=== PATIENT | male | born 1975 | race American Indian/Alaskan Native ===

== ENCOUNTER 2023-07-15 06:40 | Inpatient (IN) | payer OTHER ==
[~2023-07-15] VITALS: Ht 170.2 cm; Wt 86.6 kg
[2023-07-15 07:42] LABS: Urine Bacteria NONE SEEN /hpf (None Seen); Urine Blood 2+ /uL (Negative); Urine Clarity Clear (Clear); Urine Color Yellow (Yellow); Urine Protein, UAD 2+ (Negative); Urine Urobilinogen Normal (Negative); Urine WBC 11 /hpf (0 - 3)
[2023-07-15] MEDS ORDERED: ACETAMINOPHEN 500 MG TAB PO ONE (08:30)
[2023-07-15 08:35] LABS: Basophils # (auto) 0 10 ^3/uL (0-0.2); Basophils % (auto) 0.3 % (0.0-2.0); Eosinophils # (auto) 0 10 ^3/uL (0-0.8); Eosinophils % (auto) 0.1 % (0.0-7.0); Hematocrit 37.4 % (41.0-53.0); Hemoglobin 12.4 g/dL (13.5-17.5); Lymphocytes # (auto) 0.6 10 ^3/uL (0.4-5.4); Lymphocytes % (auto) 4.1 % (10.0-50.0); Mean Corpuscular Hemoglobin 28.2 pg (28.0-32.0); Mean Corpuscular Hgb Conc. 33.1 g/dL (32.0-36.0); Mean Corpuscular Volume 85.3 fL (80.0-100.0); Monocytes # (auto) 0.5 10 ^3/uL (0-1.3); Monocytes % (auto) 3.4 % (0.0-12.0); Neutrophils # (auto) 14.6 10 ^3/uL (1.6-8.6); Neutrophils % (auto) 92.1 % (37.0-80.0); Nucleated Red Blood Cells % 0.1 %; Red Blood Cells 4.38 10^6/uL (4.5-5.90); Red Cell Distribution Width 13.5 % (11.8-14.3); White Blood Cell 15.9 10^3/uL (4.4-10.8)
[2023-07-15] MEDS ORDERED: SODIUM CHLORIDE 0.9% 2,450 ML IV ONE (08:45)
[2023-07-15] MEDS ORDERED: PIPERACILLIN-TAZO 4.5GM 100 ML IV ONE (08:45)
[2023-07-15 08:51] LABS: Alanine Aminotransferase 50 U/L (7-40); Albumin 3.9 g/dL (3.2-4.8); Alkaline Phosphatase 168 U/L (46-116); Anion Gap 8 (5-15); Aspartate Aminotransferase 56 U/L (13-40); BUN/Creatinine Ratio 8.1 (10.0-20.0); Blood Urea Nitrogen 13 mg/dL (9-23); Calcium 8.7 mg/dL (8.5-10.1); Carbon Dioxide 23 mmol/L (20-30); Chloride 98 mmol/L (98-107); Potassium 4.1 mmol/L (3.5-5.1); Sodium 129 mmol/L (136-145)
[2023-07-15 08:52] LABS: Bilirubin, Total 1.2 mg/dL (0.2-1.0); Total Protein 6.7 g/dL (5.7-8.2)
[2023-07-15 08:57] LABS: Glucose 431 mg/dL (74-106)
[2023-07-15 09:04] LABS: Lipase 33 U/L (12-53); Magnesium 1.9 mg/dL (1.6-2.6)
[2023-07-15 09:24] LABS: INR 0.96 (0.9-1.15); Prothrombin Time 10.1 sec (9.3-11.8)
[2023-07-15] MEDS ORDERED: VANCOMYCIN 1GM/200ML 250 ML IV ONE (09:45)
[2023-07-15] MEDS ORDERED: MORPHINE SULFATE INJ 2 MG/ml SYRG IV PRN (10:00)
[2023-07-15] MEDS ORDERED: DOCUSATE SOD 100 MG CAP PO PRN (10:00)
[2023-07-15] MEDS ORDERED: SODIUM CHLORIDE 0.9% 2,000 ML IV ONE (10:00)
[2023-07-15] MEDS ORDERED: ONDANSETRON HCL 4 MG/2 ML VIAL IV PRN (10:00)
[2023-07-15] MEDS ORDERED: InsuLIN REG 1unit/0.01ml Soln (100units/ml) IV ONE (10:15)
[2023-07-15] MEDS: SODIUM CHLORIDE 0.9% 1,000 ML IV SCH ×2 (11:13→17:08)
[2023-07-15 11:48] LABS: COVID19 ANTIGEN SOFIA FIA NEGATIVE (NEGATIVE); Rapid Influenza A Negative (Negative); Rapid Influenza B Negative (Negative)
[2023-07-15 13:16] LABS: Creatinine, Urine 83.62 mg/dL (30.0-125.0)
[2023-07-15] MEDS: PIPERACILLIN-TAZOB 3.375GM 100 ML IV SCH ×2 (17:08→22:15)
[2023-07-15 17:16] VITALS: O2SAT 98
[2023-07-15] MEDS ORDERED: LOSARTAN POTASSIUM 25 MG TAB PO ONE (18:15)
[2023-07-15 19:45] VITALS: PULSE 115; RESP 15; O2SAT 98
[2023-07-15 23:00] VITALS: O2SAT 98
[2023-07-16] MEDS: SODIUM CHLORIDE 0.9% 1,000 ML IV SCH ×2 (02:00→22:31)
[2023-07-16] MEDS: PIPERACILLIN-TAZOB 3.375GM 100 ML IV SCH (03:58)
[2023-07-16] MEDS ORDERED: VANCOMYCIN PER PHARMACY 0 MG IV SCH ×2 (05:15→08:30)
[2023-07-16 05:26] LABS: Basophils # (auto) 0 10 ^3/uL (0-0.2); Basophils % (auto) 0.3 % (0.0-2.0); Eosinophils # (auto) 0 10 ^3/uL (0-0.8); Eosinophils % (auto) 0.3 % (0.0-7.0); Hematocrit 34.5 % (41.0-53.0); Hemoglobin 11.6 g/dL (13.5-17.5); Lymphocytes # (auto) 0.8 10 ^3/uL (0.4-5.4); Lymphocytes % (auto) 10.7 % (10.0-50.0); Mean Corpuscular Hgb Conc. 33.7 g/dL (32.0-36.0); Mean Corpuscular Volume 85.9 fL (80.0-100.0); Monocytes # (auto) 0.6 10 ^3/uL (0-1.3); Monocytes % (auto) 8.7 % (0.0-12.0); Nucleated Red Blood Cells % 0.1 %; Red Blood Cells 4.01 10^6/uL (4.5-5.90); Red Cell Distribution Width 13.6 % (11.8-14.3); White Blood Cell 7.5 10^3/uL (4.4-10.8)
[2023-07-16 05:49] LABS: Alanine Aminotransferase 56 U/L (7-40); Albumin 3.5 g/dL (3.2-4.8); Alkaline Phosphatase 197 U/L (46-116); Anion Gap 9 (5-15); Aspartate Aminotransferase 55 U/L (13-40); BUN/Creatinine Ratio 9.1 (10.0-20.0); Bilirubin, Total 1.4 mg/dL (0.2-1.0); Blood Urea Nitrogen 12 mg/dL (9-23); Calcium 8.2 mg/dL (8.5-10.1); Carbon Dioxide 23 mmol/L (20-30); Chloride 103 mmol/L (98-107)
[2023-07-16 05:57] LABS: Glucose 291 mg/dL (74-106); Sodium 135 mmol/L (136-145)
[2023-07-16] MEDS ORDERED: VANCOMYCIN 1GM/200ML 250 ML IV ONE (06:00)
[2023-07-16] MEDS ORDERED: DEXTROSE (50%) 50ML SYRG IV PRN (08:30)
[2023-07-16 09:00] VITALS: BP 157/87; PULSE 101; RESP 20; TEMP 98.5; O2SAT 97
[2023-07-16 10:13] LABS: LDL Cholesterol 125 mg/dL (< 100); Triglycerides 154 mg/dL (< 150)
[2023-07-16 10:15] LABS: Cholesterol 187 mg/dL (< 200); HDL Cholesterol 41 mg/dL (40-59)
[2023-07-16] MEDS: LOSARTAN POTASSIUM 25 MG TAB PO SCH (10:26)
[2023-07-16] MEDS: cefTRIAXone 1GM/50ML D5W 50 ML IV SCH (10:26)
[2023-07-16] MEDS: INSULIN LANTUS (GLARGINE) 1 /0.01ml (100units/ml) SC SCH (10:27)
[2023-07-16 13:00] VITALS: BP 167/92; PULSE 103; RESP 20; TEMP 98.7; O2SAT 96
[2023-07-16 13:01] VITALS: PULSE 100; RESP 16; O2SAT 95
[2023-07-16] MEDS: ACCU-CHEK COMFORT CURVE STRIP VI SCH ×3 (13:09→20:01)
[2023-07-16] MEDS: InsuLIN REG 1unit/0.01ml Soln (100units/ml) SC SCH ×3 (13:09→20:23)
[2023-07-16 16:39] VITALS: BP 155/91; PULSE 101; RESP 20; TEMP 98.7; O2SAT 98
[2023-07-16] MEDS: TAMSULOSIN HYDROCHLORIDE 0.4 MG CAP PO SCH (18:32)
[2023-07-16 22:00] VITALS: BP 143/86; PULSE 100; RESP 18; TEMP 98.7; O2SAT 98
[2023-07-16] MEDS ORDERED: VANCOMYCIN 1GM/200ML 250 ML IV SCH (22:00)
[2023-07-16] MEDS: VANCOMYCIN 750mg/250ml 250 ML IV SCH (22:06)
[2023-07-17] MEDS: ACCU-CHEK COMFORT CURVE STRIP VI SCH ×7 (00:07→23:46)
[2023-07-17] MEDS: InsuLIN REG 1unit/0.01ml Soln (100units/ml) SC SCH ×7 (00:09→23:50)
[2023-07-17 05:00] VITALS: BP 153/87; PULSE 95; RESP 18; TEMP 98.4; O2SAT 97
[2023-07-17] MEDS: INSULIN LANTUS (GLARGINE) 1 /0.01ml (100units/ml) SC SCH (06:40)
[2023-07-17 07:57] LABS: Alanine Aminotransferase 50 U/L (7-40); Albumin 3.3 g/dL (3.2-4.8); Alkaline Phosphatase 258 U/L (46-116); Anion Gap 6 (5-15); Aspartate Aminotransferase 34 U/L (13-40); BUN/Creatinine Ratio 10.3 (10.0-20.0); Blood Urea Nitrogen 11 mg/dL (9-23); Calcium 8.4 mg/dL (8.7-10.4); Carbon Dioxide 26 mmol/L (20-30); Chloride 106 mmol/L (98-107); Magnesium 2.1 mg/dL (1.6-2.6); Potassium 3.8 mmol/L (3.5-5.1); Sodium 138 mmol/L (136-145)
[2023-07-17 07:58] LABS: Bilirubin, Total 0.6 mg/dL (0.2-1.0); Total Protein 5.8 g/dL (5.7-8.2)
[2023-07-17 08:01] LABS: Glucose 182 mg/dL (74-106)
[2023-07-17] MEDS ORDERED: ATORVASTATIN 20 MG TAB PO ONE (08:45)
[2023-07-17] MEDS ORDERED: ERGOCALCIFEROL 50,000 UNIT(1.25MG) CAP PO SCH (08:45)
[2023-07-17 09:00] VITALS: BP 153/88; PULSE 94; RESP 20; TEMP 98.6; O2SAT 97
[2023-07-17] MEDS: LOSARTAN POTASSIUM 25 MG TAB PO SCH (09:03)
[2023-07-17] MEDS: cefTRIAXone 1GM/50ML D5W 50 ML IV SCH (09:03)
[2023-07-17 09:19] LABS: Hepatitis B Surface Antigen Negative (Negative)
[2023-07-17 09:39] LABS: Hepatitis A Ab IgM Negative
[2023-07-17 09:40] LABS: Hepatitis B Core IgM Negative
[2023-07-17 09:41] LABS: Hepatitis C Antibody Negative (Negative)
[2023-07-17] MEDS: SODIUM CHLORIDE 0.9% 1,000 ML IV SCH (11:33)
[2023-07-17 13:00] VITALS: BP 165/98; PULSE 97; RESP 20; TEMP 98.2; O2SAT 95
[2023-07-17] MEDS: VANCOMYCIN 750mg/250ml 250 ML IV SCH (13:59)
[2023-07-17] MEDS ORDERED: hydrALAZINE HCL 25 MG TAB ONE (14:27)
[2023-07-17] MEDS: hydrALAZINE HCL 25 MG TAB PO PRN (14:28)
[2023-07-17 16:54] VITALS: BP 160/87; PULSE 102; RESP 18; TEMP 98.2; O2SAT 98
[2023-07-17] MEDS: TAMSULOSIN HYDROCHLORIDE 0.4 MG CAP PO SCH (17:31)
[2023-07-17] MEDS: metFORMIN HYDROCHLORIDE 500 MG TAB PO SCH (17:31)
[2023-07-17] MEDS ORDERED: hydrALAZINE HCL 25 MG TAB PO SCH (18:00)
[2023-07-17 22:00] VITALS: BP 147/92; PULSE 96; RESP 16; TEMP 97.9; O2SAT 98
[2023-07-17] MEDS: ATORVASTATIN 20 MG TAB PO SCH (22:37)
[2023-07-18] MEDS: SODIUM CHLORIDE 0.9% 1,000 ML IV SCH ×2 (00:25→14:17)
[2023-07-18] MEDS: ACCU-CHEK COMFORT CURVE STRIP VI SCH ×6 (04:18→23:37)
[2023-07-18] MEDS: InsuLIN REG 1unit/0.01ml Soln (100units/ml) SC SCH ×6 (04:23→23:43)
[2023-07-18 05:00] VITALS: BP 154/92; PULSE 98; RESP 20; TEMP 98.6; O2SAT 99
[2023-07-18] MEDS ORDERED: ACETAMINOPHEN 325 MG TAB PO ONE ×2 (05:55→06:00)
[2023-07-18] MEDS: hydrALAZINE HCL 25 MG TAB PO PRN ×2 (06:11→23:37)
[2023-07-18] MEDS: EMPAGLIFLOZIN 10 MG TAB PO SCH (06:12)
[2023-07-18 06:33] LABS: Basophils # (auto) 0 10 ^3/uL (0-0.2); Basophils % (auto) 0.5 % (0.0-2.0); Eosinophils # (auto) 0.2 10 ^3/uL (0-0.8); Eosinophils % (auto) 4.6 % (0.0-7.0); Hematocrit 34.3 % (41.0-53.0); Hemoglobin 11.4 g/dL (13.5-17.5); Lymphocytes # (auto) 1.3 10 ^3/uL (0.4-5.4); Lymphocytes % (auto) 26.5 % (10.0-50.0); Mean Corpuscular Hemoglobin 28.2 pg (28.0-32.0); Mean Corpuscular Hgb Conc. 33.2 g/dL (32.0-36.0); Mean Corpuscular Volume 84.9 fL (80.0-100.0); Monocytes # (auto) 0.4 10 ^3/uL (0-1.3); Monocytes % (auto) 8.6 % (0.0-12.0); Neutrophils % (auto) 59.8 % (37.0-80.0); Red Blood Cells 4.04 10^6/uL (4.5-5.90); Red Cell Distribution Width 13.8 % (11.8-14.3); White Blood Cell 5.1 10^3/uL (4.4-10.8)
[2023-07-18 06:42] LABS: Anion Gap 6 (5-15); Carbon Dioxide 27 mmol/L (20-30); Chloride 106 mmol/L (98-107); Potassium 3.8 mmol/L (3.5-5.1); Sodium 139 mmol/L (136-145)
[2023-07-18 06:43] LABS: Calcium 8.6 mg/dL (8.7-10.4)
[2023-07-18 06:48] LABS: BUN/Creatinine Ratio 10.7 (10.0-20.0); Blood Urea Nitrogen 11 mg/dL (9-23); Glucose 180 mg/dL (74-106)
[2023-07-18] MEDS: VANCOMYCIN 750mg/250ml 250 ML IV SCH (08:35)
[2023-07-18] MEDS: metFORMIN HYDROCHLORIDE 500 MG TAB PO SCH ×2 (08:35→17:33)
[2023-07-18] MEDS: LOSARTAN POTASSIUM 25 MG TAB PO SCH (08:45)
[2023-07-18 09:00] VITALS: BP 155/90; PULSE 94; RESP 18; TEMP 98.7; O2SAT 93
[2023-07-18 12:45] VITALS: BP_SYST 119; BP_SYST 159; BP_DIAS 74; BP_DIAS 95; PULSE 97; PULSE 99; RESP 16; RESP 18; TEMP 98.1; TEMP 98.2; O2SAT 97
[2023-07-18] MEDS: cefTRIAXone 1GM/50ML D5W 50 ML IV SCH (14:00)
[2023-07-18] MEDS ORDERED: VANCOMYCIN 1GM/200ML 250 ML IV ONE (16:10)
[2023-07-18] MEDS: VANCOMYCIN 1GM/200ML 250 ML IV SCH (16:14)
[2023-07-18 17:00] VITALS: BP 158/91; PULSE 98; RESP 20; TEMP 98.3; O2SAT 100
[2023-07-18] MEDS: TAMSULOSIN HYDROCHLORIDE 0.4 MG CAP PO SCH (17:33)
[2023-07-18 23:19] VITALS: BP 163/88; PULSE 103; RESP 18; TEMP 97.9; O2SAT 99
[2023-07-18] MEDS: ATORVASTATIN 20 MG TAB PO SCH (23:37)
[2023-07-19] MEDS ORDERED: VANCOMYCIN 1GM/200ML 250 ML IV ONE ×2 (01:55→11:31)
[2023-07-19] MEDS: VANCOMYCIN 1GM/200ML 250 ML IV SCH ×3 (01:56→22:00)
[2023-07-19] MEDS: SODIUM CHLORIDE 0.9% 1,000 ML IV SCH ×2 (03:05→16:25)
[2023-07-19] MEDS: InsuLIN REG 1unit/0.01ml Soln (100units/ml) SC SCH ×5 (04:00→20:00)
[2023-07-19] MEDS: ACCU-CHEK COMFORT CURVE STRIP VI SCH ×5 (04:08→20:00)
[2023-07-19 05:44] VITALS: BP 146/84; PULSE 104; RESP 18; TEMP 98.1; O2SAT 96
[2023-07-19] MEDS: EMPAGLIFLOZIN 10 MG TAB PO SCH (06:27)
[2023-07-19] MEDS: metFORMIN HYDROCHLORIDE 500 MG TAB PO SCH ×2 (08:01→18:24)
[2023-07-19] MEDS: LOSARTAN POTASSIUM 25 MG TAB PO SCH (08:03)
[2023-07-19 08:30] VITALS: BP 136/85; PULSE 98; RESP 20; TEMP 98.2
[2023-07-19 09:00] VITALS: BP 136/85; PULSE 98; RESP 20; TEMP 98.2; O2SAT 95
[2023-07-19] MEDS: cefTRIAXone 1GM/50ML D5W 50 ML IV SCH (09:00)
[2023-07-19 13:00] VITALS: BP 135/83; PULSE 103; RESP 20; TEMP 98.3; O2SAT 96
[2023-07-19 17:00] VITALS: BP 136/83; PULSE 99; RESP 20; TEMP 98.1; O2SAT 98
[2023-07-19] MEDS: TAMSULOSIN HYDROCHLORIDE 0.4 MG CAP PO SCH (18:24)
[2023-07-19 22:00] VITALS: BP 162/94; PULSE 100; RESP 18; TEMP 98.1; O2SAT 95
[2023-07-19] MEDS: ATORVASTATIN 20 MG TAB PO SCH (23:33)
[2023-07-20] VITALS (8 sets, daily range): BP systolic 112–149; BP diastolic 70–82; PULSE 54–105; RESP 16–20; TEMP 36.3; O2SAT 91–99
[2023-07-20] MEDS: InsuLIN REG 1unit/0.01ml Soln (100units/ml) SC SCH ×7 (00:05→23:09)
[2023-07-20] MEDS: ACCU-CHEK COMFORT CURVE STRIP VI SCH ×7 (00:05→23:10)
[2023-07-20 06:29] LABS: Chloride 107 mmol/L (98-107); Potassium 4.4 mmol/L (3.5-5.1); Sodium 138 mmol/L (136-145)
[2023-07-20 06:30] LABS: Anion Gap 5 (5-15); Carbon Dioxide 26 mmol/L (20-30)
[2023-07-20] MEDS: EMPAGLIFLOZIN 10 MG TAB PO SCH (06:31)
[2023-07-20] MEDS: SODIUM CHLORIDE 0.9% 1,000 ML IV SCH ×2 (06:32→19:05)
[2023-07-20 06:33] LABS: Basophils # (auto) 0 10 ^3/uL (0-0.2); Basophils % (auto) 0.5 % (0.0-2.0); Eosinophils # (auto) 0.2 10 ^3/uL (0-0.8); Eosinophils % (auto) 4.8 % (0.0-7.0); Hematocrit 34.8 % (41.0-53.0); Hemoglobin 11.6 g/dL (13.5-17.5); Lymphocytes # (auto) 1.3 10 ^3/uL (0.4-5.4); Lymphocytes % (auto) 29.5 % (10.0-50.0); Mean Corpuscular Hemoglobin 28.6 pg (28.0-32.0); Mean Corpuscular Hgb Conc. 33.3 g/dL (32.0-36.0); Mean Corpuscular Volume 85.8 fL (80.0-100.0); Monocytes # (auto) 0.3 10 ^3/uL (0-1.3); Monocytes % (auto) 6.8 % (0.0-12.0); Neutrophils # (auto) 2.6 10 ^3/uL (1.6-8.6); Neutrophils % (auto) 58.4 % (37.0-80.0); Red Blood Cells 4.05 10^6/uL (4.5-5.90); Red Cell Distribution Width 13.6 % (11.8-14.3); White Blood Cell 4.4 10^3/uL (4.4-10.8)
[2023-07-20 06:35] LABS: BUN/Creatinine Ratio 12.2 (10.0-20.0); Blood Urea Nitrogen 17 mg/dL (9-23); Glucose 199 mg/dL (74-106)
[2023-07-20] MEDS: VANCOMYCIN 1GM/200ML 250 ML IV SCH ×2 (08:08→20:35)
[2023-07-20] MEDS: metFORMIN HYDROCHLORIDE 500 MG TAB PO SCH ×2 (08:09→17:06)
[2023-07-20] MEDS: cefTRIAXone 1GM/50ML D5W 50 ML IV SCH (09:37)
[2023-07-20] MEDS: LOSARTAN POTASSIUM 25 MG TAB PO SCH (09:37)
[2023-07-20] MEDS: TAMSULOSIN HYDROCHLORIDE 0.4 MG CAP PO SCH (17:06)
[2023-07-20] MEDS: ATORVASTATIN 20 MG TAB PO SCH (23:01)
[2023-07-21 05:00] VITALS: BP 127/76; PULSE 98; RESP 17; TEMP 98.1; O2SAT 98
[2023-07-21] MEDS: EMPAGLIFLOZIN 10 MG TAB PO SCH (06:00)
[2023-07-21] MEDS: SODIUM CHLORIDE 0.9% 1,000 ML IV SCH (06:01)
[2023-07-21] MEDS: ACCU-CHEK COMFORT CURVE STRIP VI SCH ×3 (06:08→12:00)
[2023-07-21] MEDS: InsuLIN REG 1unit/0.01ml Soln (100units/ml) SC SCH ×3 (06:08→12:00)
[2023-07-21 06:32] LABS: Hematocrit 34.7 % (41.0-53.0); Hemoglobin 11.5 g/dL (13.5-17.5); Mean Corpuscular Hemoglobin 28.5 pg (28.0-32.0); Mean Corpuscular Hgb Conc. 33.2 g/dL (32.0-36.0); Mean Corpuscular Volume 85.8 fL (80.0-100.0); Red Blood Cells 4.04 10^6/uL (4.5-5.90); Red Cell Distribution Width 13.8 % (11.8-14.3); White Blood Cell 5.1 10^3/uL (4.4-10.8)
[2023-07-21 06:41] LABS: Alanine Aminotransferase 109 U/L (7-40); Albumin 3.5 g/dL (3.2-4.8); Alkaline Phosphatase 328 U/L (46-116); Anion Gap 8 (5-15); Aspartate Aminotransferase 96 U/L (13-40); BUN/Creatinine Ratio 13.5 (10.0-20.0); Bilirubin, Total 0.5 mg/dL (0.2-1.0); Blood Urea Nitrogen 17 mg/dL (9-23); CRP High Sensitivity 0.67 mg/dL (<1.0); Calcium 9.1 mg/dL (8.5-10.1); Carbon Dioxide 24 mmol/L (20-30); Chloride 106 mmol/L (98-107); Glucose 175 mg/dL (74-106); Potassium 4.1 mmol/L (3.5-5.1); Sodium 138 mmol/L (136-145)
[2023-07-21 06:51] LABS: Basophils % (manual) 0 (0.0-2.0); Blast Cells 0; Metamyelocytes % 0; Myelocytes % 0; Promyelocytes % 0; Reactive Lymphocytes 0
[2023-07-21 08:00] VITALS: PULSE 97; RESP 17; O2SAT 97
[2023-07-21] MEDS: cefTRIAXone 1GM/50ML D5W 50 ML IV SCH (08:33)
[2023-07-21] MEDS: metFORMIN HYDROCHLORIDE 500 MG TAB PO SCH (08:33)
[2023-07-21 08:57] LABS: Band Neutrophils % (manual) 1; Eosinophils % (manual) 8 (0-7); Lymphocytes % (manual) 30 (10.0-50.0); Monocytes % (manual) 6 (0-12)
[2023-07-21 08:58] LABS: Platelet Estimate Adequate; RBC Morphology Normal
[2023-07-21 09:00] VITALS: BP 138/83; PULSE 91; RESP 17; TEMP 97.9; O2SAT 97
[2023-07-21] MEDS: LOSARTAN POTASSIUM 25 MG TAB PO SCH (10:31)
[2023-07-21] MEDS: VANCOMYCIN 1GM/200ML 250 ML IV SCH (10:31)
[2023-07-21 13:00] VITALS: BP 131/75; PULSE 102; RESP 16; TEMP 97.6; O2SAT 98
[2023-07-21 15:18] VITALS: BP 129/76; PULSE 99; RESP 15; TEMP 97.6; O2SAT 98
== END 2023-07-21 17:31 | disposition home or self-care (01) | DRG 871 ==
LOC: ER 06:40 → OVERFLOW 09:50 → WEST WING 07-16 08:11
PROVIDERS: ADMIT Internal Medicine; ATTEND Student in an Organized Health Care Education/Training Program
DX: A41.02 Sepsis due to Methicillin resistant Staphylococcus aureus (principal); N17.0 Acute kidney failure with tubular necrosis; D61.818 Other pancytopenia; E87.1 Hypo-osmolality and hyponatremia; N39.0 Urinary tract infection, site not specified; I38 Endocarditis, valve unspecified; E11.65 Type 2 diabetes mellitus with hyperglycemia; E86.0 Dehydration; R31.9 Hematuria, unspecified; R74.01 Elevation of levels of liver transaminase levels; Z20.822 Contact with and (suspected) exposure to COVID-19; Z79.84 Long term (current) use of oral hypoglycemic drugs; Z91.199 Patient's noncompliance with other medical treatment and regimen due to unspecified reason
CPT/HCPCS: 36415; 71045; 74176; 76705; 80048; 80053; 80061; 80074; 80202; 81001; 82010; 82306; 82565; 82570; 82962; 83036; 83605; 83690; 83735; 83930; 83935; 84300; 84439; 84443; 84484; 85007; 85025; 85027; 85610; 86141; 87040; 87077; 87086; 87186; 87426; 87804; 93306; 96365; 96368; G0378; J1815; J2543